=== PATIENT | female | born 2000 | race Hispanic/Latino ===

== ENCOUNTER 2022-07-27 09:10 | Day surgery (SDC) | payer OTHER ==
[2022-07-27 09:34] VITALS: BMI 41.5
[2022-07-27] MEDS ORDERED: hydrALAZINE 20 MG/ML VIAL SLOW IVP PRN (09:58)
[2022-07-27] MEDS ORDERED: Acetaminophen 500 MG TAB PO SCH (10:00)
[2022-07-27] MEDS ORDERED: Lactated Ringer's 1,000 ML IV SCH (10:15)
== END 2022-07-27 11:56 | disposition home health service (06) ==
LOC: CSHLD/OP 09:10
PROVIDERS: ATTEND Family Medicine
DX: O47.1 False labor at or after 37 completed weeks of gestation (principal); O14.93 Unspecified pre-eclampsia, third trimester; O23.43 Unspecified infection of urinary tract in pregnancy, third trimester; O98.313 Other infections with a predominantly sexual mode of transmission complicating pregnancy, third trimester; A74.9 Chlamydial infection, unspecified; A59.9 Trichomoniasis, unspecified; Z79.899 Other long term (current) drug therapy; Z3A.37 37 weeks gestation of pregnancy

== ENCOUNTER 2022-07-28 23:51 | Day surgery (SDC) | payer OTHER ==
[2022-07-29 00:18] VITALS: BMI 42.9
[2022-07-29] MEDS ORDERED: hydrALAZINE 20 MG/ML VIAL SLOW IVP PRN (00:49)
== END 2022-07-29 01:37 | disposition home or self-care (01) ==
LOC: CSHLD/OP 23:51
PROVIDERS: ATTEND Family Medicine
DX: O99.613 Diseases of the digestive system complicating pregnancy, third trimester (principal); K59.00 Constipation, unspecified; Z3A.38 38 weeks gestation of pregnancy
CPT/HCPCS: 99282; 99283

== ENCOUNTER 2022-08-07 11:17 | Day surgery (SDC) | payer OTHER ==
[2022-08-07] MEDS ORDERED: hydrALAZINE 20 MG/ML VIAL SLOW IVP PRN (12:05)
[2022-08-07] MEDS ORDERED: Lactated Ringer's 1,000 ML IV SCH ×2 (12:15→13:00)
[2022-08-07] MEDS ORDERED: Acetaminophen 500 MG TAB PO SCH (12:15)
[2022-08-07 15:36] LABS: Bilirubin Neg (Negative); Blood, Urine 10 (Negative); Clarity Clear (Clear); Glucose, Urine (Dipstick) Normal (Negative); Ketone, Urine 15 mg/dL (Negative); Leukocyte 25 (Negative); Nitrite Negative (Negative); Protein, Urine (Dipstick) 15 mg/dl (Neg-Trace); Specific Gravity, Urine 1.015 (1.005-1.030); Urobilinogen Normal mg/dL (Less than 2); pH, Urine 6.5 (5.0-9.0)
[2022-08-07 15:57] LABS: Bacteria/HPF 3+ HPF (None Seen); CAUTI Indications for Culture Pelvic or flank pain; RBC/HPF 0-3 HPF (0-3); Transitional Epithelial 0-3 HPF (None Seen); Urine Culture Reflex No No
[2022-08-07 16:27] VITALS: BMI 41.5
== END 2022-08-07 16:18 | disposition home or self-care (01) ==
LOC: CSHLD/OP 11:17
PROVIDERS: ATTEND Family Medicine
DX: O47.1 False labor at or after 37 completed weeks of gestation (principal); O26.893 Other specified pregnancy related conditions, third trimester; R10.2 Pelvic and perineal pain; O99.013 Anemia complicating pregnancy, third trimester; D64.9 Anemia, unspecified; O23.593 Infection of other part of genital tract in pregnancy, third trimester; N89.8 Other specified noninflammatory disorders of vagina; Z79.899 Other long term (current) drug therapy; Z91.018 Allergy to other foods; Z88.8 Allergy status to other drugs, medicaments and biological substances; Z3A.39 39 weeks gestation of pregnancy
CPT/HCPCS: 81001; 87480; 87510; 87660; 96360; 99284

== ENCOUNTER 2022-08-08 14:41 | Inpatient (IN) | payer OTHER ==
[2022-08-05 13:33] LABS: Hemoglobin 10.5 g/dL (12.0-15.5); Platelet Count 181 10x3/uL (150-450)
[2022-08-05 14:07] LABS: Syphilis Antibody Nonreactive (Nonreactive); Syphilis Antibody Index 0.08 S/CO (<1.00 Non-Reactive)
[2022-08-05 14:08] LABS: HBSAg Index 0.18 S/CO (0-0.99); Hep B Surf Ag Non-Reactive S/CO (NonReactive)
[2022-08-08] MEDS ORDERED: Famotidine/PF 20 mg/2ml Vial ONE (15:35)
[2022-08-08] MEDS ORDERED: CEFAZOLIN 2 GM VIAL ONE (15:35)
[2022-08-08] MEDS ORDERED: Sodium Chloride 0.9% 100 ML ONE (15:35)
[2022-08-08] MEDS ORDERED: NS w/ Oxytocin 30 units 500 ML IV SCH (15:39)
[2022-08-08] MEDS ORDERED: Carboprost 250 MCG/ML AMP IM PRN (15:39)
[2022-08-08] MEDS ORDERED: CEFAZOLIN 2 GM in Sodium Chloride 0.9% 100 ML IVPB SCH (15:39)
[2022-08-08] MEDS ORDERED: Ondansetron PF 4 MG/2 ML Vial IVP PRN ×3 (15:39→20:40)
[2022-08-08] MEDS ORDERED: Promethazine HCl 25 MG/ML VIAL IM PRN ×2 (15:39→16:57)
[2022-08-08] MEDS ORDERED: hydrALAZINE 20 MG/ML VIAL SLOW IVP PRN ×2 (15:39→20:40)
[2022-08-08] MEDS ORDERED: Tranexamic Acid 1,000 MG/10 ML VIAL IVP PRN (15:39)
[2022-08-08] MEDS ORDERED: Bicitra 30 ML UDCUP PO PRN (15:39)
[2022-08-08] MEDS ORDERED: Methylergonovine 0.2 MG/ML VIAL IM PRN (15:39)
[2022-08-08] MEDS ORDERED: Diphenoxylate HCl/Atropine Tablet PO PRN (15:39)
[2022-08-08] MEDS ORDERED: Misoprostol 200 MCG TAB PR PRN (15:39)
[2022-08-08] MEDS ORDERED: Famotidine/PF 20 mg/2ml Vial SLOW IVP PRN (15:39)
[2022-08-08] MEDS ORDERED: Lactated Ringer's 1,000 ML IV SCH (15:39)
[2022-08-08 15:40] VITALS: BMI 42.0
[2022-08-08] MEDS ORDERED: Dexamethasone 4 mg/ml Vial ONE (16:17)
[2022-08-08] MEDS ORDERED: Ondansetron PF 4 MG/2 ML Vial ONE (16:17)
[2022-08-08] MEDS ORDERED: Oxytocin 10 UNITS/ML VIAL ONE (16:17)
[2022-08-08] MEDS ORDERED: Morphine PF 10 MG/10 ML VIAL ONE (16:17)
[2022-08-08] MEDS ORDERED: PHENYLEPHRINE-NS 100 MCG/ML 10 ML SYRINGE ONE (16:17)
[2022-08-08] MEDS ORDERED: Acetaminophen 325 MG TAB PO PRN (16:57)
[2022-08-08] MEDS ORDERED: Naloxone HCl 0.4 mg/ml Vial IVP PRN ×2 (16:57)
[2022-08-08] MEDS ORDERED: ePHEDrine Sulfate 50 MG/10 ML VIAL SLOW IVP PRN (16:57)
[2022-08-08] MEDS ORDERED: diphenhydrAMINE 50 MG/ML VIAL IVP PRN (16:57)
[2022-08-08] MEDS ORDERED: Lactated Ringer's 500 ML IV PRN (16:57)
[2022-08-08] MEDS ORDERED: Moisturizing Cream (Eucerin) 113 GM JAR TOP PRN (16:57)
[2022-08-08] MEDS ORDERED: Fentanyl 2 mcg/Bupivacaine 0.1% Cassette 100 ML EPIDURAL SCH (17:00)
[2022-08-08] MEDS ORDERED: Communication Order-Pharmacy FS SCH (17:00)
[2022-08-08] MEDS ORDERED: ePHEDrine Sulfate 50 MG/10 ML VIAL ONE (17:22)
[2022-08-08] MEDS ORDERED: Boostrix 0.5 ML (Tdap) VIAL (>/=7 yrs of age) IM ONE (20:40)
[2022-08-08] MEDS ORDERED: Simethicone Chewable 80 MG TAB PO PRN (20:40)
[2022-08-08] MEDS ORDERED: Lanolin Ointment 7 GM TUBE TOP PRN (20:40)
[2022-08-08] MEDS ORDERED: Bisacodyl 10 MG SUPP PR PRN (20:40)
[2022-08-08] MEDS ORDERED: diphenhydrAMINE 25 MG CAP PO PRN (20:40)
[2022-08-08] MEDS ORDERED: Meperidine HCl/PF 25 MG/ML VIAL IM PRN (20:40)
[2022-08-08] MEDS: Docusate 100 MG CAP PO SCH (21:30)
[2022-08-08] MEDS: Ferrous Sulfate 325 MG TAB PO SCH (21:30)
[2022-08-08] MEDS: Ketorolac Tromethamine 30 MG/ML VIAL IVP SCH (23:48)
[2022-08-09 03:52] LABS: Hemoglobin 9.4 g/dL (12.0-15.5); Mean Corpuscular HGB CONC 32.6 g/dL (32.0-36.0); Mean Corpuscular Hemoglobin 28.9 pg (27.0-33.0); Mean Corpuscular Volume 88.6 fl (81.6-98.3); Mean Platelet Volume 12.9 fl (7.4-10.4); Platelet Count 168 10x3/uL (150-450); Red Blood Cell (RBC) Count 3.25 10x6/uL (3.90-5.03); White Blood Cell (WBC) Count 12.1 10x3/uL (3.5-10.5)
[2022-08-09] MEDS: Ketorolac Tromethamine 30 MG/ML VIAL IVP SCH ×3 (08:21→08:24)
[2022-08-09] MEDS: Docusate 100 MG CAP PO SCH ×2 (08:24→21:50)
[2022-08-09] MEDS: Ferrous Sulfate 325 MG TAB PO SCH ×2 (08:24→21:50)
[2022-08-09] MEDS: Prenatal Vitamin 1 TAB PO SCH (08:24)
[2022-08-09] MEDS: HYDROcodone/Acetaminophen 5/325 mg Tablet PO PRN ×2 (11:55→18:03)
[2022-08-09] MEDS: Ibuprofen 800 MG TAB PO SCH ×2 (13:46→21:50)
[2022-08-10] MEDS: Ibuprofen 800 MG TAB PO SCH ×3 (05:18→21:48)
[2022-08-10] MEDS: HYDROcodone/Acetaminophen 5/325 mg Tablet PO PRN ×3 (05:21→16:58)
[2022-08-10] MEDS: Prenatal Vitamin 1 TAB PO SCH (08:33)
[2022-08-10] MEDS: Docusate 100 MG CAP PO SCH ×2 (08:33→21:48)
[2022-08-10] MEDS: Ferrous Sulfate 325 MG TAB PO SCH ×2 (08:33→21:48)
[2022-08-10] MEDS: Polyethylene Glycol 3350 17 GM Packet PO PRN (10:49)
[2022-08-11] MEDS: Ibuprofen 800 MG TAB PO SCH ×2 (06:08→14:22)
[2022-08-11 07:57] VITALS: BP 112/72; TEMP 98.7
[2022-08-11] MEDS: Docusate 100 MG CAP PO SCH (08:00)
[2022-08-11] MEDS: Prenatal Vitamin 1 TAB PO SCH (08:00)
[2022-08-11] MEDS: Ferrous Sulfate 325 MG TAB PO SCH (08:00)
[2022-08-11] MEDS: Polyethylene Glycol 3350 17 GM Packet PO PRN (08:38)
[2022-08-11] MEDS: HYDROcodone/Acetaminophen 5/325 mg Tablet PO PRN ×2 (08:38→14:22)
[2022-08-11] MEDS ORDERED: Milk Of Magnesia 30 ML UDCUP PO SCH (13:30)
== END 2022-08-11 15:50 | disposition home or self-care (01) | DRG 788 ==
LOC: CSHLD 14:41 → CSHPP 20:21
PROVIDERS: ADMIT Family Medicine; ATTEND Family Medicine
PROC: 10D00Z1 Extraction of Products of Conception, Low, Open Approach (ICD-10-PCS; principal; 2022-08-08)
DX: O34.211 Maternal care for low transverse scar from previous cesarean delivery (principal); Z3A.39 39 weeks gestation of pregnancy; Z37.0 Single live birth; Z79.899 Other long term (current) drug therapy; Z91.018 Allergy to other foods; Z88.8 Allergy status to other drugs, medicaments and biological substances; D64.9 Anemia, unspecified; K21.9 Gastro-esophageal reflux disease without esophagitis; O99.02 Anemia complicating childbirth; O99.62 Diseases of the digestive system complicating childbirth
CPT/HCPCS: 51702; 85014; 85018; 85027; 85049; 86780; 86850; 86900; 86901; 87340; J1100; J1200; J1885; J2274; J2405; J2590; J7120; S0028